=== PATIENT | female | born 1985 | race American Indian/Alaskan Native ===

== ENCOUNTER 2017-02-21 19:17 | Emergency (ER) | payer SELFPAY ==
[2017-02-21] MEDS ORDERED: Ketorolac 10 MG Tab PO ONE (19:18)
[2017-02-21 19:20] VITALS: BP 128/81
--- NOTE | 2017-02-21 19:33 | EDM.PDOC ---
ED HPI GENERAL MEDICAL PROBLEM - General Chief Complaint: Lower Extremity Injury/Pain Stated Complaint: pain to right calf Time Seen by Provider: 02/21/17 19:24 Source of Information: Reports: Patient History Limitations: Reports: No Limitations - History of Present Illness INITIAL COMMENTS - FREE TEXT/NARRATIVE: Patient presents with right calf pain for the last 3 days. States has been trying tylenol and muscle relaxants without much relief. Has not been travelling or flown anywhere as of late. No swelling in her leg. Has a constant ache, doesn't differ with weight bearing or with rest. Has tried rubbing ointment on her leg too without much help. Not aware of any electrolyte abnormalities in the past. No shortness of breath or chest pain. 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 LINE TEAMSTER: Reports: Acetaminophen, NSAIDS, Other Medication(s) Other Treatments LONG LINE TEAMSTER: muscle relaxant Right Lower Leg Pain Score (Numeric/FACES): 4 - Related Data Allergies Allergy/AdvReac Type Severity Reaction Status Date / Time No Known Allergies Allergy Verified 02/21/17 19:20 Home Meds: Home Meds Acetaminophen [Tylenol Arthritis Pain] 650 mg PO ASDIRECTED PRN 02/21/17 [ History] Ethynodiol D-Ethinyl Estradiol [Zovia 1-35E Tablet] 1 tab PO DAILY 02/21/17 [ History] Orphenadrine [Norflex] 100 mg PO BID PRN 02/21/17 [History] Social & Family History - Tobacco Use Smoking Status *Q: Never Smoker Second Hand Smoke Exposure: No - Alcohol Use Days Per Week of Alcohol Use: 0 - Recreational Drug Use Recreational Drug Use: No Review of Systems - Review of Systems Review Of Systems: See Below Constitutional: Denies: Chills, Fever, Weakness Eyes: Reports: No Symptoms Ears: Reports: No Symptoms Nose: Reports: No Symptoms Mouth/Throat: Reports: No Symptoms Respiratory: Denies: Shortness of Breath, Wheezing, Cough Cardiovascular: Denies: Chest Pain, Edema, Irregular Heart Rate, Palpitations GI/Abdominal: Reports: No Symptoms Genitourinary: Reports: No Symptoms Musculoskeletal: Reports: Leg Pain Skin: Denies: Bruising Neurological: Reports: No Symptoms Psychiatric: Reports: No Symptoms ED EXAM, GENERAL - Physical Exam Exam: See Below Exam Limited By: No Limitations General Appearance: Alert, WD/WN, No Apparent Distress Respiratory/Chest: No Respiratory Distress, Lungs Clear, Normal Breath Sounds Cardiovascular: Regular Rate, Rhythm, No Edema Extremities: Normal Inspection, Normal Range of Motion, No Pedal Edema, Normal Capillary Refill Neurological: Alert, Oriented Skin Exam: Warm, Dry Course - Vital Signs Last Recorded V/S: Last Vital Signs Temp 96.6 F 02/21/17 19:18 Pulse 106 H 02/21/17 19:18 Resp 16 02/21/17 19:18 BP 128/81 02/21/17 19:18 Pulse Ox 96 02/21/17 19:18 - Orders/Labs/Meds Labs: Laboratory Tests 02/21/17 02/21/17 02/21/17 Range/Units 19:40 19:40 19:40 WBC 6.7 (5.0-10.0) 10^3/uL RBC 4.70 (4.00-5.50) 10^6/uL Hgb 13.6 (12.0-16.0) g/dL Hct 41.0 (37.0-47.0) % MCV 87.2 (82.0-94.0) fL MCH 28.9 (27.0-32.0) pg MCHC 33.2 (33.0-38.0) g/dL RDW Coeff of Sherrie 13.2 (11.0-15.0) % Plt Count 273 (150-400) 10^3/uL Neut % (Auto) 54.9 (35-85) % Lymph % (Auto) 31.8 (10-55) % [place] % (Auto) 9.9 (0-16) % Eos % (Auto) 3.1 (0-5) % Baso % (Auto) 0.3 (0-3) % Neut # (Auto) 3.68 (1.80-7.00) 10^3/uL Lymph # (Auto) 2.13 (1.00-4.80) 10^3/uL [place] # (Auto) 0.66 (0.00-0.80) 10^3/uL Eos # (Auto) 0.21 (0.00-0.45) 10^3/uL Baso # (Auto) 0.02 10^3/uL D-Dimer, Quantitative 0.34 (0.00-0.50) Sodium 138 (136-145) mEq/L Potassium 3.9 (3.5-5.0) mEq/L Chloride 102 (98-106) mEq/L Carbon Dioxide 28 (21-32) mmol/L BUN 10 (7-18) mg/dL Creatinine 0.9 (0.6-1.0) mg/dL Est Cr Clr Drug Dosing 83.23 mL/min Estimated GFR (MDRD) > 60 (>=60) mL/min Glucose 100 H (75-99) mg/dL Calcium 8.8 (8.4-10.1) mg/dL Magnesium 1.9 (1.8-2.4) mg/dL Departure - Departure Time of Disposition: 20:04 Disposition: Home, Self-Care 01 Condition: Good Clinical Impression: Pain of left calf - Discharge Information Forms: ED Department Discharge Additional Instructions: 1. Push fluids 2. Continue with biofreeze or icy hot to calf 3. Norflex 100 mg twice a day until relieved 4. Toradol 10 mg every 6 hours as needed for discomfort and inflammation 5. Follow up for any ongoing concerns.
[2017-02-21 19:55] LABS: CHLORIDE,CL 102 mEq/L (98-106); SODIUM,NA 138 mEq/L (136-145)
[2017-02-21] MEDS ORDERED: Take Home: Ketorolac 10 MG Tab, 4 Tab Pack PO ONE (20:07)
== END 2017-02-21 20:12 | disposition home or self-care (01) ==
LOC: CC.ED 19:17
DX: M79.662 Pain in left lower leg (principal)
CPT/HCPCS: 36415; 80048; 83735; 85025; 85379; 99283; A9270

== ENCOUNTER 2017-03-30 13:56 | Emergency (ER) | payer SELFPAY ==
[2017-03-30 14:46] LABS: CHLORIDE,CL 103 mEq/L (98-106); SODIUM,NA 139 mEq/L (136-145)
[2017-03-30 15:07] VITALS: BP 119/76
--- NOTE | 2017-03-30 17:43 | EDM.PDOC ---
ED HPI GENERAL MEDICAL PROBLEM - General Chief Complaint: General Stated Complaint: NUMBNESS IN HER NECK DOWN TO HER HAND Time Seen by Provider: 03/30/17 14:45 Source of Information: Reports: Patient History Limitations: Reports: No Limitations - History of Present Illness INITIAL COMMENTS - FREE TEXT/NARRATIVE: Elmira is a 31 yo female who presents to the ER with complaints of palpitations and discomfort going into her left jaw and left arm. Admits to a history of radicular symptoms into her left arm secondary to 3 cervical herniated discs. States she called the nurses at the clinic to ask what she should do and they advised she go directly to the ER. She states the radiation into her jaw has subsided now. Has been doing physical therapy and now home stretches/exercises for her bulging discs. She denies any discomfort in the chest on exertion. States she is suppose to start going to the gym and lose weight for her neck but hasn't started yet. States she doesn't have any chest pressure presently. States she feels her normal self. Feels that after talking to the nurse it did make it worse as her anxiety set in. Admits to a history of anxiety attacks. 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: Musculoskeletal History: Reports: Back Pain, Chronic Neurological History: Reports: Headaches, Chronic Psychiatric History: Reports: Anxiety, Panic Attack Endocrine/Metabolic History: Reports: Obesity/BMI 30+ - Past Surgical History HEENT Surgical History: Reports: Oral Surgery GI Surgical History: Reports: Cholecystectomy Female Surgical History: Reports: Section Social & Family History - Family History Family Medical History: Noncontributory - Tobacco Use Smoking Status *Q: Never Smoker Second Hand Smoke Exposure: No - Caffeine Use Caffeine Use: Reports: Soda - Alcohol Use Days Per Week of Alcohol Use: 0 - Recreational Drug Use Recreational Drug Use: No ED ROS GENERAL - Review of Systems Review Of Systems: See Below Constitutional: Reports: No Symptoms. Denies: Fever, Chills HEENT: Reports: No Symptoms Respiratory: Denies: Shortness of Breath Cardiovascular: Reports: Chest Pain, Palpitations. Denies: Dyspnea on Exertion , Lightheadedness, Syncope GI/Abdominal: Reports: No Symptoms Musculoskeletal: Reports: Arm Pain Neurological: Reports: Numbness (left arm/neck area), Pre-Existing Deficit. Denies: Weakness ED EXAM, GENERAL - Physical Exam Exam: See Below Exam Limited By: No Limitations General Appearance: Alert, WD/WN, No Apparent Distress Ears: Normal External Exam, Normal Canal, Hearing Grossly Normal, Normal TMs Nose: Normal Inspection, No Blood Throat/Mouth: Normal Inspection, Normal Lips, Normal Teeth, Normal Oropharynx, Normal Voice, No Airway Compromise Head: Atraumatic, Normocephalic Neck: Normal Inspection, Supple Respiratory/Chest: No Respiratory Distress, Lungs Clear Cardiovascular: Normal Peripheral Pulses, Regular Rate, Rhythm, No Edema, No Murmur GI/Abdominal: Normal Bowel Sounds, Soft, No Organomegaly, No Distention Neurological: Alert, Oriented, Normal Cognition Psychiatric: Normal Affect, Normal Mood Skin Exam: Warm, Dry, Intact, Normal Color, No Rash Course - Vital Signs Last Recorded V/S: Last Vital Signs Temp 98.1 F 03/30/17 14:45 Pulse 97 03/30/17 14:45 Resp 16 03/30/17 14:45 BP 119/76 03/30/17 14:45 Pulse Ox 99 03/30/17 14:45 - Orders/Labs/Meds Orders: Active Orders 24 hr Category Date Time Status EKG Documentation Completion [RC] STAT Care 03/30/17 14:20 Active Chest 2V [CR] Stat Exams 03/30/17 14:27 Taken Labs: Laboratory Tests 03/30/17 03/30/17 03/30/17 Range/Units 14:25 14:25 14:25 WBC 8.1 (5.0-10.0) 10^3/uL RBC 4.74 (4.00-5.50) 10^6/uL Hgb 13.6 (12.0-16.0) g/dL Hct 41.9 (37.0-47.0) % MCV 88.4 (82.0-94.0) fL MCH 28.7 (27.0-32.0) pg MCHC 32.5 L (33.0-38.0) g/dL RDW Coeff of Sherrie 13.1 (11.0-15.0) % Plt Count 258 (150-400) 10^3/uL Neut % (Auto) 65.0 (35-85) % Lymph % (Auto) 22.3 (10-55) % [place] % (Auto) 9.3 (0-16) % Eos % (Auto) 3.0 (0-5) % Baso % (Auto) 0.4 (0-3) % Neut # (Auto) 5.27 (1.80-7.00) 10^3/uL Lymph # (Auto) 1.81 (1.00-4.80) 10^3/uL [place] # (Auto) 0.75 (0.00-0.80) 10^3/uL Eos # (Auto) 0.24 (0.00-0.45) 10^3/uL Baso # (Auto) 0.03 10^3/uL PT 10.1 (9.7-12.3) SEC INR 0.94 (0.92-1.18) Sodium 139 (136-145) mEq/L Potassium 4.1 (3.5-5.0) mEq/L Chloride 103 (98-106) mEq/L Carbon Dioxide 27 (21-32) mmol/L BUN 10 (7-18) mg/dL Creatinine 0.7 (0.6-1.0) mg/dL Est Cr Clr Drug Dosing 107.01 mL/min Estimated GFR (MDRD) > 60 (>=60) mL/min Glucose 115 H (75-99) mg/dL Calcium 9.3 (8.4-10.1) mg/dL Lactate Dehydrogenase 146 (100-190) U/L Creatine Kinase 112 (21-215) U/L Troponin I < 0.017 (0.00-0.06) ng/mL Departure - Departure Time of Disposition: 16:30 Disposition: Home, Self-Care 01 Condition: Good Clinical Impression: Cervical radicular pain, Atypical chest pain - Discharge Information Instructions: Radicular Pain, Panic Attacks, [id number], Nonspecific Chest Pain Referrals: PCP,None [Primary Care Provider] - Forms: ED Department Discharge Additional Instructions: 1) Continue with current medications as directed. 2) Recommend establishing care and getting outside records for review. 3) If any concerns or symptoms return and worsen, recommend reevaluation. 4) Continue with home exercises as well. - Problem List & Annotations (1) Atypical chest pain SNOMED Code(s): 958168511 Code(s): R07.89 - OTHER CHEST PAIN Status: Acute (2) Cervical radicular pain SNOMED Code(s): 344397069 Code(s): M54.12 - RADICULOPATHY, CERVICAL REGION Status: Acute - Problem List Review Problem List Initiated/Reviewed/Updated: Yes - My Orders Last 24 Hours: My Active Orders 03/30/17 14:20 EKG Documentation Completion [RC] STAT 03/30/17 14:27 Chest 2V [CR] Stat - Assessment/Plan Last 24 Hours: My Active Orders 03/30/17 14:20 EKG Documentation Completion [RC] STAT 03/30/17 14:27 Chest 2V [CR] Stat Plan: Exam, labs, EKG and chest x-ray were all stable. No clinical findings. Will discharge home at this time. Recommend establishing care to discuss current symptoms. Advise returning if symptoms persist.
== END 2017-03-30 15:55 | disposition home or self-care (01) ==
LOC: CC.ED 13:56
DX: M54.12 Radiculopathy, cervical region (principal); R07.89 Other chest pain; F41.9 Anxiety disorder, unspecified
CPT/HCPCS: 36415; 71046; 80048; 82550; 83615; 84484; 85025; 85610; 93005; 99285

== ENCOUNTER 2017-09-25 21:31 | Emergency (ER) | payer SELFPAY ==
[2017-09-25] MEDS ORDERED: Amoxicillin 500 MG Cap PO ONE (21:32)
[2017-09-25 21:52] VITALS: BP 113/74
[2017-09-25] MEDS ORDERED: Take Home: Amoxicillin 500 MG Cap, 2 Cap Pack PO ONE (21:53)
--- NOTE | 2017-09-25 21:58 | EDM.PDOC ---
ED HPI GENERAL MEDICAL PROBLEM - General Chief Complaint: General Stated Complaint: "I HAVE A SORE THROAT" Time Seen by Provider: 09/25/17 21:46 Source of Information: Reports: Patient History Limitations: Reports: No Limitations - History of Present Illness INITIAL COMMENTS - FREE TEXT/NARRATIVE: This patient is a 32 year old female that presents to the ER. Patient reports that for the past 2 days she has had sore throat. She reports it hurts to eat and drink. She also reports a mild headache. Patient denies n, v, d, f, voice change, vision changes, ear pain, congestion, drainage, cough, cp, soa, abd pain , urinary/bowel changes, rashes, neck pain, neck stiffness. Onset Date: 09/23/17 Duration: Day(s): (2) Quality: Reports: Ache Severity: Mild Improves with: Reports: Eating Worsens with: Reports: None Associated Symptoms: Reports: Headaches. Denies: Confusion, Chest Pain, Cough, cough w sputum, Diaphoresis, Fever/Chills, Loss of Appetite, Malaise, Nausea/ Vomiting, Rash, Seizure, Shortness of Breath, Syncope, Weakness Throat Pain Score (Numeric/FACES): 4 - Related Data Allergies Allergy/AdvReac Type Severity Reaction Status Date / Time No Known Allergies Allergy Verified 09/25/17 21:41 Home Meds: Home Meds Orphenadrine [Norflex] 100 mg PO BID PRN 02/21/17 [History] Ketorolac [Toradol] 10 mg PO Q6H 03/30/17 [History] traMADol [Ultram] 50 mg PO Q6H 03/30/17 [History] Past Medical History - Past Health History Medical/Surgical History: Denies Medical/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: Musculoskeletal History: Reports: Back Pain, Chronic Neurological History: Reports: Headaches, Chronic Psychiatric History: Reports: Anxiety, Panic Attack Endocrine/Metabolic History: Reports: Obesity/BMI 30+ - Past Surgical History HEENT Surgical History: Reports: Oral Surgery GI Surgical History: Reports: Cholecystectomy Female Surgical History: Reports: Section Social & Family History - Family History Family Medical History: Noncontributory - Caffeine Use Caffeine Use: Reports: Soda ED ROS GENERAL - Review of Systems Review Of Systems: See Below Constitutional: Reports: No Symptoms HEENT: Reports: Throat Pain. Denies: Dental Pain, Ear Discharge, Ear Pain, Rhinitis, Sinus Problem Respiratory: Reports: No Symptoms Cardiovascular: Reports: No Symptoms Endocrine: Reports: No Symptoms GI/Abdominal: Reports: No Symptoms. Denies: Diarrhea, Nausea, Vomiting : Reports: No Symptoms Musculoskeletal: Reports: No Symptoms Skin: Reports: No Symptoms Neurological: Reports: Headache. Denies: Confusion, Dizziness, Numbness, Seizure, Syncope, Tingling, Tremors, Trouble Speaking, Difficulty Walking, Weakness, Change in Speech, Gait Disturbance Psychiatric: Reports: No Symptoms Hematologic/Lymphatic: Reports: No Symptoms Immunologic: Reports: No Symptoms ED EXAM, GENERAL - Physical Exam Exam: See Below Exam Limited By: No Limitations General Appearance: Alert, WD/WN, No Apparent Distress Eye Exam: Bilateral Eye: Normal Inspection, PERRL Ears: Normal External Exam, Normal Canal, Hearing Grossly Normal, Normal TMs Ear Exam: Bilateral Ear: Auricle Normal, Canal Normal, TM normal Nose: Normal Inspection, Normal Mucosa, No Blood Throat/Mouth: Normal Inspection, Normal Lips, Normal Teeth, Normal Gums, Normal Voice, No Airway Compromise, Other (pharyngeal erythema. ) Head: Atraumatic, Normocephalic Neck: Normal Inspection, Supple, Non-Tender, Full Range of Motion Respiratory/Chest: No Respiratory Distress, Lungs Clear, Normal Breath Sounds, No Accessory Muscle Use Cardiovascular: Normal Peripheral Pulses, Regular Rate, Rhythm, No Edema, No Gallop, No JVD, No Murmur, No Rub Peripheral Pulses: 2+: Posterior Tibial (L), Posterior Tibial (R) Back Exam: Normal Inspection, Full Range of Motion Extremities: Normal Inspection, Normal Range of Motion, No Pedal Edema, Normal Capillary Refill Neurological: Alert, Oriented Psychiatric: Normal Affect, Normal Mood Skin Exam: Warm, Dry, Intact, Normal Color, No Rash Lymphatic: No Adenopathy Course - Vital Signs Last Recorded V/S: Last Vital Signs Temp 97.8 F 09/25/17 21:51 Pulse 76 09/25/17 21:51 Resp 18 09/25/17 21:51 BP 113/74 09/25/17 21:51 Pulse Ox 97 09/25/17 21:51 - Orders/Labs/Meds Meds: Medications Discontinued Medications Generic Name Dose Route Start Last Admin Trade Name Freq PRN Reason Stop Dose Admin Amoxicillin 2 packet 09/25/17 21:53 Take Home: Amoxicillin 500 Mg, 2 Cap Pack PO 09/25/17 21:54 ONETIME ONE Sodium Chloride Confirm 09/25/17 22:41 Normal Saline Administered 09/25/17 22:42 Dose 2,000 mls @ as directed .ROUTE .STK-MED ONE Departure - Departure Time of Disposition: 21:56 Disposition: Home, Self-Care 01 Condition: Good Clinical Impression: Pharyngitis Qualifiers: Pharyngitis/tonsillitis etiology: other specified organisms Qualified Code(s): J02.8 - Acute pharyngitis due to other specified organisms - Discharge Information Instructions: Pharyngitis, [id number] Referrals: Provider,Unknown [Primary Care Provider] - Forms: ED Department Discharge Additional Instructions: Followup with your primary care provider Return to the ER for worsening of condition or any emergent concerns Increase fluids Amoxicillin 500mg 2 pills once a day for 10 days #4 take home, #16 No refill Tylenol and Motrin for pain or fever - Assessment/Plan Plan: PLEASE SEE RN NOTE FOR PFSH.
[2017-09-25] MEDS ORDERED: Sodium Chloride 0.9% 2,000 ML ONE (22:41)
== END 2017-09-25 22:00 | disposition home or self-care (01) ==
LOC: CC.ED 21:31
DX: J02.8 Acute pharyngitis due to other specified organisms (principal); Z79.899 Other long term (current) drug therapy
CPT/HCPCS: 99282; A9270

== ENCOUNTER 2017-09-30 12:50 | Emergency (ER) | payer SELFPAY ==
[2017-09-30 13:32] VITALS: BP 108/81
--- NOTE | 2017-09-30 13:46 | EDM.PDOC ---
ED HPI GENERAL MEDICAL PROBLEM - General Chief Complaint: General Stated Complaint: SORE TROAT Time Seen by Provider: 09/30/17 13:35 Source of Information: Reports: Patient History Limitations: Reports: No Limitations - History of Present Illness INITIAL COMMENTS - FREE TEXT/NARRATIVE: States was started on Amoxicillin on Wednesday night for strep throat and by Wednesday afternoon was already feeling better. On Wednesday she started to notice more chest burning and an increase in heartburn. Has been taking her omeprazole. Is also on herballife shakes that she does every morning so she drinks that with her antibiotics and doesn't eat anything else until dinner time. Does have history of heartburn. The omepraozle does help when she takes it. She denies any nausea or vomiting with it. States that this morning the burning went up into her throat and it has made it difficult to swallow as her throat felt like it was on fire. 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: Musculoskeletal History: Reports: Back Pain, Chronic Neurological History: Reports: Headaches, Chronic Psychiatric History: Reports: Anxiety, Panic Attack Endocrine/Metabolic History: Reports: Obesity/BMI 30+ - Past Surgical History HEENT Surgical History: Reports: Oral Surgery GI Surgical History: Reports: Cholecystectomy Female Surgical History: Reports: Section Social & Family History - Family History Family Medical History: Noncontributory - Tobacco Use Smoking Status *Q: Never Smoker Second Hand Smoke Exposure: No - Caffeine Use Caffeine Use: Reports: Soda ED ROS GENERAL - Review of Systems Review Of Systems: See Below Constitutional: Denies: Fever, Chills HEENT: Reports: Throat Pain. Denies: Throat Swelling Respiratory: Denies: Shortness of Breath, Cough Cardiovascular: Reports: No Symptoms GI/Abdominal: Reports: No Symptoms. Denies: Constipation, Diarrhea : Reports: No Symptoms Musculoskeletal: Reports: No Symptoms Skin: Reports: No Symptoms ED EXAM, GENERAL - Physical Exam Exam: See Below General Appearance: Alert, WD/WN, No Apparent Distress Ears: Normal External Exam, Normal Canal, Normal TMs Nose: Normal Inspection Throat/Mouth: Normal Inspection, Normal Oropharynx, Normal Voice, No Airway Compromise Head: Atraumatic, Normocephalic Neck: Normal Inspection, Supple, Non-Tender, Full Range of Motion Respiratory/Chest: No Respiratory Distress, Lungs Clear, Normal Breath Sounds Cardiovascular: Regular Rate, Rhythm GI/Abdominal: Normal Bowel Sounds, Soft, Non-Tender Extremities: Normal Inspection, Normal Range of Motion Course - Vital Signs Last Recorded V/S: Last Vital Signs Temp 97.2 F 09/30/17 13:23 Pulse 88 09/30/17 13:23 Resp 18 09/30/17 13:23 BP 108/81 09/30/17 13:23 Pulse Ox 98 09/30/17 13:23 - Orders/Labs/Meds Labs: Laboratory Tests 09/30/17 09/30/17 Range/Units 13:16 13:16 WBC 6.6 (5.0-10.0) 10^3/uL RBC 4.79 (4.00-5.50) 10^6/uL Hgb 13.6 (12.0-16.0) g/dL Hct 41.7 (37.0-47.0) % MCV 87.1 (82.0-94.0) fL MCH 28.4 (27.0-32.0) pg MCHC 32.6 L (33.0-38.0) g/dL RDW Coeff of Sherrie 13.2 (11.0-15.0) % Plt Count 271 (150-400) 10^3/uL Neut % (Auto) 60.5 (35-85) % Lymph % (Auto) 27.3 (10-55) % [place] % (Auto) 9.2 (0-16) % Eos % (Auto) 2.7 (0-5) % Baso % (Auto) 0.3 (0-3) % Neut # (Auto) 3.96 (1.80-7.00) 10^3/uL Lymph # (Auto) 1.79 (1.00-4.80) 10^3/uL [place] # (Auto) 0.60 (0.00-0.80) 10^3/uL Eos # (Auto) 0.18 (0.00-0.45) 10^3/uL Baso # (Auto) 0.02 10^3/uL C-Reactive Protein < 0.2 L (0.2-0.8) mg/dL Departure - Departure Time of Disposition: 13:52 Disposition: Home, Self-Care 01 Condition: Good Clinical Impression: GERD (gastroesophageal reflux disease) Qualifiers: Esophagitis presence: without esophagitis Qualified Code(s): K21.9 - Gastro- esophageal reflux disease without esophagitis - Discharge Information Instructions: Heartburn, [id number], Food Choices for Gastroesophageal Reflux Disease, Adult Referrals: Provider,Unknown [Ordering Only Provider] - Forms: ED Department Discharge Additional Instructions: Stop the herballife while on the antibiotics. 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 Finish out the antibiotics. You can try splitting the dose and take them in the morning and evening Recheck in the clinic if not improving. - Problem List & Annotations (1) GERD (gastroesophageal reflux disease) SNOMED Code(s): 978279907 Code(s): K21.9 - GASTRO-ESOPHAGEAL REFLUX DISEASE WITHOUT ESOPHAGITIS Status: Acute Priority: High Qualifiers: Esophagitis presence: without esophagitis Qualified Code(s): K21.9 - Gastro -esophageal reflux disease without esophagitis - Problem List Review Problem List Initiated/Reviewed/Updated: Yes
== END 2017-09-30 14:05 | disposition home or self-care (01) ==
LOC: CC.ED 12:50
DX: K21.9 Gastro-esophageal reflux disease without esophagitis (principal)
CPT/HCPCS: 36415; 85025; 86140; 87430; 99282

== ENCOUNTER 2018-02-09 09:04 | Emergency (ER) | payer MEDICAID ==
[2018-02-09 09:25] VITALS: BP 119/81
[2018-02-09 10:13] LABS: CHLORIDE,CL 105 mEq/L (98-106); SODIUM,NA 142 mEq/L (136-145)
[2018-02-09] MEDS ORDERED: Ondansetron 4 MG Tab.DIS PO ONE (10:21)
--- NOTE | 2018-02-09 10:49 | EDM.PDOC ---
ED HPI GENERAL MEDICAL PROBLEM - General Chief Complaint: Headache Stated Complaint: headache Time Seen by Provider: 02/09/18 09:30 Source of Information: Reports: Patient History Limitations: Reports: No Limitations - History of Present Illness INITIAL COMMENTS - FREE TEXT/NARRATIVE: Elmira is a 32 yo female who presents to the ER with complaints of a headache and feeling nauseated. Was seen in the clinic on Wednesday for headache and had a DT scan of the brain, which was negative. She admits to history of headaches but usually doesn't feel nauseated. Has a history of bulging cervical discs and had previously seen physical therapy in the past and is wondering if this would help again. She had tried taking Tramadol and Toradol at home yesterday which did give her some mild relief. Today the headache has moved to the back of her head on the right side. Again, she is concerned as she usually never gets nauseated. She denies otherwise feeling ill. Denies but can't confirm this. She hasn't had any upper respiratory symptoms. Denies any abdominal discomfort, diarrhea, constipation, urinary symptoms. 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: Musculoskeletal History: Reports: Back Pain, Chronic Other Musculoskeletal History: bulging discs Neurological History: Reports: Headaches, Chronic Psychiatric History: Reports: Anxiety, Panic Attack Endocrine/Metabolic History: Reports: Obesity/BMI 30+ - Past Surgical History HEENT Surgical History: Reports: Oral Surgery GI Surgical History: Reports: Cholecystectomy Female Surgical History: Reports: Section Social & Family History - Family History Family Medical History: Noncontributory - Tobacco Use Smoking Status *Q: Never Smoker - Caffeine Use Caffeine Use: Reports: Coffee, Soda - Recreational Drug Use Recreational Drug Use: No ED ROS GENERAL - Review of Systems Review Of Systems: ROS reveals no pertinent complaints other than HPI. - Physical Exam Exam: See Below Exam Limited By: No Limitations General Appearance: Alert, WD/WN, No Apparent Distress Eye Exam: Bilateral Eye: EOMI, Normal Inspection, PERRL Ears: Normal External Exam, Normal Canal, Hearing Grossly Normal, Normal TMs Nose: Normal Inspection, No Blood Throat/Mouth: Normal Inspection, Normal Lips, Normal Teeth, Normal Gums, Normal Oropharynx, Normal Voice, No Airway Compromise Head Exam: Atraumatic, Normocephalic Neck: Normal Inspection, Supple, Tender Lateral. No: Limited Range of Motion, Tender Midline Respiratory/Chest: No Respiratory Distress, Lungs Clear, No Accessory Muscle Use Cardiovascular: Normal Peripheral Pulses, Regular Rate, Rhythm, No Murmur Neuro Exam (Abbreviated): Alert, Oriented, CN II-XII Intact, Normal Cognition, No Motor/Sensory Deficits Psychiatric: Normal Affect, Normal Mood Skin Exam: Warm, Dry, Intact, Normal Color, No Rash Course - Vital Signs Last Recorded V/S: Last Vital Signs Temp 96.9 F 02/09/18 09:20 Pulse 94 02/09/18 09:20 Resp 16 02/09/18 09:20 BP 119/81 02/09/18 09:20 Pulse Ox 96 02/09/18 09:20 - Orders/Labs/Meds Labs: Laboratory Tests 02/09/18 02/09/18 02/09/18 Range/Units 09:47 09:48 09:57 WBC 6.1 (5.0-10.0) 10^3/uL RBC 4.83 (4.00-5.50) 10^6/uL Hgb 13.9 (12.0-16.0) g/dL Hct 42.0 (37.0-47.0) % MCV 87.0 (82.0-94.0) fL MCH 28.8 (27.0-32.0) pg MCHC 33.1 (33.0-38.0) g/dL RDW Coeff of Sherrie 13.0 (11.0-15.0) % Plt Count 255 (150-400) 10^3/uL Neut % (Auto) 66.1 (35-85) % Lymph % (Auto) 22.2 (10-55) % [place] % (Auto) 7.9 (0-16) % Eos % (Auto) 3.3 (0-5) % Baso % (Auto) 0.5 (0-3) % Neut # (Auto) 4.02 (1.80-7.00) 10^3/uL Lymph # (Auto) 1.35 (1.00-4.80) 10^3/uL [place] # (Auto) 0.48 (0.00-0.80) 10^3/uL Eos # (Auto) 0.20 (0.00-0.45) 10^3/uL Baso # (Auto) 0.03 10^3/uL Sodium (136-145) mEq/L Potassium (3.5-5.0) mEq/L Chloride (98-106) mEq/L Carbon Dioxide (21-32) mmol/L BUN (7-18) mg/dL Creatinine (0.6-1.0) mg/dL Est Cr Clr Drug Dosing mL/min Estimated GFR (MDRD) (>=60) mL/min Glucose (75-99) mg/dL Calcium (8.4-10.1) mg/dL Total Bilirubin (0.0-1.0) mg/dL AST (15-37) U/L ALT (12-78) U/L Alkaline Phosphatase (46-116) U/L C-Reactive Protein (0.2-0.8) mg/dL Total Protein (6.4-8.2) g/dL Albumin (3.4-5.0) g/dL Urine Color Yellow (YELLOW) Urine Appearance Clear (CLEAR) Urine pH 6.5 (4.5-8.0) Ur Specific [place] 1.010 (1.003-1.020) Urine Protein Negative (NEGATIVE) mg/dL Urine Glucose (UA) Negative (NEGATIVE) mg/dL Urine Ketones Negative (NEGATIVE) mg/dL Urine Occult Blood Negative (NEGATIVE) Urine Nitrite Negative (NEGATIVE) Urine Bilirubin Negative (NEGATIVE) Urine Urobilinogen 0.2 (0.2-1.0) EU/dL Ur Leukocyte Esterase Negative (NEGATIVE) Urine RBC Not seen (0-5) /HPF Urine WBC Not seen (0-5) /HPF Urine HCG, Qual Negative 02/09/18 Range/Units 09:57 WBC (5.0-10.0) 10^3/uL RBC (4.00-5.50) 10^6/uL Hgb (12.0-16.0) g/dL Hct (37.0-47.0) % MCV (82.0-94.0) fL MCH (27.0-32.0) pg MCHC (33.0-38.0) g/dL RDW Coeff of Sherrie (11.0-15.0) % Plt Count (150-400) 10^3/uL Neut % (Auto) (35-85) % Lymph % (Auto) (10-55) % [place] % (Auto) (0-16) % Eos % (Auto) (0-5) % Baso % (Auto) (0-3) % Neut # (Auto) (1.80-7.00) 10^3/uL Lymph # (Auto) (1.00-4.80) 10^3/uL [place] # (Auto) (0.00-0.80) 10^3/uL Eos # (Auto) (0.00-0.45) 10^3/uL Baso # (Auto) 10^3/uL Sodium 142 (136-145) mEq/L Potassium 4.7 (3.5-5.0) mEq/L Chloride 105 (98-106) mEq/L Carbon Dioxide 28 (21-32) mmol/L BUN 9 (7-18) mg/dL Creatinine 0.7 (0.6-1.0) mg/dL Est Cr Clr Drug Dosing 106.01 mL/min Estimated GFR (MDRD) > 60 (>=60) mL/min Glucose 92 (75-99) mg/dL Calcium 8.8 (8.4-10.1) mg/dL Total Bilirubin 0.4 (0.0-1.0) mg/dL AST 22 (15-37) U/L ALT 31 (12-78) U/L Alkaline Phosphatase 82 (46-116) U/L C-Reactive Protein 0.2 (0.2-0.8) mg/dL Total Protein 7.3 (6.4-8.2) g/dL Albumin 3.8 (3.4-5.0) g/dL Urine Color (YELLOW) Urine Appearance (CLEAR) Urine pH (4.5-8.0) Ur Specific [place] (1.003-1.020) Urine Protein (NEGATIVE) mg/dL Urine Glucose (UA) (NEGATIVE) mg/dL Urine Ketones (NEGATIVE) mg/dL Urine Occult Blood (NEGATIVE) Urine Nitrite (NEGATIVE) Urine Bilirubin (NEGATIVE) Urine Urobilinogen (0.2-1.0) EU/dL Ur Leukocyte Esterase (NEGATIVE) Urine RBC (0-5) /HPF Urine WBC (0-5) /HPF Urine HCG, Qual Meds: Medications Discontinued Medications Generic Name Dose Route Start Last Admin Trade Name M[place]hq PRN Reason Stop Dose Admin Ondansetron HCl 4 mg 02/09/18 10:21 02/09/18 10:24 Zofran Odt PO 02/09/18 10:22 4 mg ONETIME ONE Administration Departure - Departure Time of Disposition: 10:49 Disposition: Home, Self-Care 01 Clinical Impression: Tension headache, Nausea - Discharge Information Instructions: Nausea, Adult, Tension Headache, Adult, [id number] Referrals: PCP,None [Primary Care Provider] - Additional Instructions: 1) Zofran ODT - 1 tablet every 4 hours as needed for nausea, called to [facility]. 2) Robaxin 500mg - 1 tablet every 8 hours as needed for neck discomfort/spasms, called to [facility]. 3) Increase water intake if able 4) Recommend following up with physical therapy 5) If symptoms persist or worsen, recommend reevaluation. - Problem List & Annotations (1) Nausea SNOMED Code(s): 929451941 Code(s): R11.0 - NAUSEA Status: Acute Current Visit: Yes (2) Tension headache SNOMED Code(s): 205596194 Code(s): G44.209 - TENSION-TYPE HEADACHE, UNSPECIFIED, NOT INTRACTABLE Status: Acute Current Visit: Yes - Assessment/Plan Plan: Elmira felt the nausea had subsided after getting Zofran. Labs were all unremarkable today. Will send home with muscle relaxer and Zofran ODT tablets. Recommend following up if symptoms persist or any worsening of symptoms. Recheck with primary in 2 weeks.
== END 2018-02-09 11:00 | disposition home or self-care (01) ==
LOC: CC.ED 09:04
DX: G44.209 Tension-type headache, unspecified, not intractable (principal); R11.0 Nausea; E66.9 Obesity, unspecified
CPT/HCPCS: 36415; 80053; 81001; 81025; 85025; 86140; 99283; A9270

== ENCOUNTER 2018-05-08 20:41 | Emergency (ER) | payer MEDICAID ==
[2018-05-08 20:48] VITALS: BP 132/74
--- NOTE | 2018-05-08 21:20 | EDM.PDOC ---
ED HPI GENERAL MEDICAL PROBLEM - General Chief Complaint: Abdominal Pain Stated Complaint: abd pain radiating to back Time Seen by Provider: 05/08/18 21:09 Source of Information: Reports: Patient History Limitations: Reports: No Limitations - History of Present Illness INITIAL COMMENTS - FREE TEXT/NARRATIVE: Patient presents to the ER with complaints of midepigastric pain. She relates was experiencing right calf pain, which is intermittent and chronic for her but now is concerned that the pain in her upper abdomen and chest is related to this. Has been across her upper abdomen, along the bra line that radiates through to her back and up through her chest. She is unsure if it is related to soup that she had for supper as it all started after that. She thought it was possibly heartburn so took Zantac but did not get relief. As the pain persists, she became concerned it could be her heart as well. She denies any vomiting, has felt nauseated. No swelling in her leg. No diarrhea. Admits that her BM was "hard earlier but didn't relieve the pain". Onset: Today, Gradual Duration: Hour(s): Location: Reports: Chest, Abdomen, Lower Extremity, Right Quality: Reports: Ache, Sharp Severity: Moderate Improves with: Reports: None Associated Symptoms: Reports: Chest Pain, Nausea/Vomiting. Denies: Cough, Fever /Chills, Loss of Appetite, Shortness of Breath, Weakness Epigastric Pain Score (Numeric/FACES): 3 - Related Data Allergies Allergy/AdvReac Type Severity Reaction Status Date / Time No Known Allergies Allergy Verified 05/08/18 20:42 Home Meds: Home Meds Ketorolac [Toradol] 10 mg PO Q6H PRN 03/30/17 [History] traMADol [Ultram] 25 mg PO Q6H PRN 03/30/17 [History] Ondansetron [Ondansetron ODT] 8 mg SL Q8H PRN 05/08/18 [History] Past Medical History - Past Health History Medical/Surgical History: Denies Medical/Surgical History HEENT History: Reports: None 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 History: Reports: GERD 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: Musculoskeletal History: Reports: Back Pain, Chronic Other Musculoskeletal History: bulging discs Neurological History: Reports: Headaches, Chronic Psychiatric History: Reports: Anxiety, Panic Attack Endocrine/Metabolic History: Reports: Obesity/BMI 30+ Hematologic History: Reports: B12 Deficiency - Past Surgical History GI Surgical History: Reports: Cholecystectomy Female Surgical History: Reports: Section Endocrine Surgical History: Reports: None Neurological Surgical History: Reports: None Musculoskeletal Surgical History: Reports: None Social & Family History - Family History Family Medical History: Noncontributory - Tobacco Use Smoking Status *Q: Never Smoker Second Hand Smoke Exposure: No - Caffeine Use Caffeine Use: Reports: Coffee - Recreational Drug Use Recreational Drug Use: No ED ROS GENERAL - Review of Systems Review Of Systems: See Below Constitutional: Denies: Fever, Chills, Malaise, Weakness, Decreased Appetite HEENT: Reports: No Symptoms Respiratory: Denies: Shortness of Breath, Cough Cardiovascular: Reports: Chest Pain. Denies: Edema, Lightheadedness Endocrine: Denies: Fatigue GI/Abdominal: Reports: Abdominal Pain, Constipation, Nausea. Denies: Vomiting : Reports: Flank Pain. Denies: Dysuria Musculoskeletal: Reports: Leg Pain Skin: Reports: No Symptoms Neurological: Reports: No Symptoms ED EXAM, GI/ABD - Physical Exam Exam: See Below Exam Limited By: No Limitations General Appearance: Alert, WD/WN, No Apparent Distress Eyes: Bilateral: Normal Appearance Ears: Normal External Exam, Normal TMs Nose: Normal Inspection, Normal Mucosa, No Blood Throat/Mouth: Normal Inspection, Normal Oropharynx Head: Normocephalic Neck: Normal Inspection, Supple, Non-Tender Respiratory/Chest: No Respiratory Distress, Lungs Clear, Normal Breath Sounds Cardiovascular: Regular Rate, Rhythm GI/Abdominal Exam: Normal Bowel Sounds, Soft, Non-Tender Extremities: Normal Inspection, Normal Capillary Refill Neurological: Alert, Oriented Psychiatric: Tearful Course - Vital Signs Last Recorded V/S: Last Vital Signs Temp 96.9 F 05/08/18 20:44 Pulse 88 05/08/18 20:44 Resp 16 05/08/18 20:44 BP 132/74 05/08/18 20:44 Pulse Ox 100 05/08/18 20:44 - Orders/Labs/Meds Orders: Active Orders 24 hr Category Date Time Status EKG Documentation Completion [RC] STAT Care 05/08/18 21:23 Active EKG 12 Lead [EK] Stat Ther 05/08/18 21:13 Stop Req Labs: Laboratory Tests 02/17/19 02/17/19 02/17/19 Range/Units 21:12 21:20 21:20 WBC (5.0-10.0) 10^3/uL RBC (4.00-5.50) 10^6/uL Hgb (12.0-16.0) g/dL Hct (37.0-47.0) % MCV (82.0-94.0) fL MCH (27.0-32.0) pg MCHC (33.0-38.0) g/dL RDW Coeff of Sherrie (11.0-15.0) % Plt Count (150-400) 10^3/uL Neut % (Auto) (35-85) % Lymph % (Auto) (10-55) % [place] % (Auto) (0-16) % Eos % (Auto) (0-5) % Baso % (Auto) (0-3) % Neut # (Auto) (1.80-7.00) 10^3/uL Lymph # (Auto) (1.00-4.80) 10^3/uL [place] # (Auto) (0.00-0.80) 10^3/uL Eos # (Auto) (0.00-0.45) 10^3/uL Baso # (Auto) 10^3/uL D-Dimer, Quantitative 0.28 (0.00-0.50) Sodium 141 (136-145) mEq/L Potassium 4.2 (3.5-5.0) mEq/L Chloride 103 (98-106) mEq/L Carbon Dioxide 27 (21-32) mmol/L BUN 14 D (7-18) mg/dL Creatinine 0.8 (0.6-1.0) mg/dL Est Cr Clr Drug Dosing 91.88 mL/min Estimated GFR (MDRD) > 60 (>=60) mL/min Glucose 94 (75-99) mg/dL Calcium 8.8 (8.4-10.1) mg/dL Total Bilirubin 0.4 (0.0-1.0) mg/dL AST 21 (15-37) U/L ALT 25 (12-78) U/L Alkaline Phosphatase 90 (46-116) U/L Troponin I < 0.017 (0.00-0.06) ng/mL C-Reactive Protein < 0.2 L (0.2-0.8) mg/dL Total Protein 7.3 (6.4-8.2) g/dL Albumin 3.9 (3.4-5.0) g/dL Urine Color Straw (YELLOW) Urine Appearance Clear (CLEAR) Urine pH 7.0 (4.5-8.0) Ur Specific [place] 1.015 (1.003-1.020) Urine Protein Negative (NEGATIVE) mg/dL Urine Glucose (UA) Negative (NEGATIVE) mg/dL Urine Ketones Negative (NEGATIVE) mg/dL Urine Occult Blood Small H (NEGATIVE) Urine Nitrite Negative (NEGATIVE) Urine Bilirubin Negative (NEGATIVE) Urine Urobilinogen 0.2 (0.2-1.0) EU/dL Ur Leukocyte Esterase Negative (NEGATIVE) Urine RBC 0-5 (0-5) /HPF Urine WBC 0-5 (0-5) /HPF Ur Epithelial Cells Few H (NOT SEEN) /HPF 05/08/18 Range/Units 21:20 WBC 7.3 (5.0-10.0) 10^3/uL RBC 4.64 (4.00-5.50) 10^6/uL Hgb 13.3 (12.0-16.0) g/dL Hct 40.0 (37.0-47.0) % MCV 86.2 (82.0-94.0) fL MCH 28.7 (27.0-32.0) pg MCHC 33.3 (33.0-38.0) g/dL RDW Coeff of Sherrie 13.2 (11.0-15.0) % Plt Count 250 (150-400) 10^3/uL Neut % (Auto) 59.4 (35-85) % Lymph % (Auto) 29.2 (10-55) % [place] % (Auto) 9.1 (0-16) % Eos % (Auto) 2.2 (0-5) % Baso % (Auto) 0.1 (0-3) % Neut # (Auto) 4.36 (1.80-7.00) 10^3/uL Lymph # (Auto) 2.14 (1.00-4.80) 10^3/uL [place] # (Auto) 0.67 (0.00-0.80) 10^3/uL Eos # (Auto) 0.16 (0.00-0.45) 10^3/uL Baso # (Auto) 0.01 10^3/uL D-Dimer, Quantitative (0.00-0.50) Sodium (136-145) mEq/L Potassium (3.5-5.0) mEq/L Chloride (98-106) mEq/L Carbon Dioxide (21-32) mmol/L BUN (7-18) mg/dL Creatinine (0.6-1.0) mg/dL Est Cr Clr Drug Dosing mL/min Estimated GFR (MDRD) (>=60) mL/min Glucose (75-99) mg/dL Calcium (8.4-10.1) mg/dL Total Bilirubin (0.0-1.0) mg/dL AST (15-37) U/L ALT (12-78) U/L Alkaline Phosphatase (46-116) U/L Troponin I (0.00-0.06) ng/mL C-Reactive Protein (0.2-0.8) mg/dL Total Protein (6.4-8.2) g/dL Albumin (3.4-5.0) g/dL Urine Color (YELLOW) Urine Appearance (CLEAR) Urine pH (4.5-8.0) Ur Specific [place] (1.003-1.020) Urine Protein (NEGATIVE) mg/dL Urine Glucose (UA) (NEGATIVE) mg/dL Urine Ketones (NEGATIVE) mg/dL Urine Occult Blood (NEGATIVE) Urine Nitrite (NEGATIVE) Urine Bilirubin (NEGATIVE) Urine Urobilinogen (0.2-1.0) EU/dL Ur Leukocyte Esterase (NEGATIVE) Urine RBC (0-5) /HPF Urine WBC (0-5) /HPF Ur Epithelial Cells (NOT SEEN) /HPF - Re-Assessments/Exams Free Text/Narrative Re-Assessment/Exam: 05/08/18 21:47 Labs, EKG all normal. patient reassured of findings. Departure - Departure Time of Disposition: 21:47 Disposition: Home, Self-Care 01 Condition: Good Clinical Impression: GERD (gastroesophageal reflux disease) Qualifiers: Esophagitis presence: without esophagitis Qualified Code(s): K21.9 - Gastro- esophageal reflux disease without esophagitis - Discharge Information Forms: ED Department Discharge Additional Instructions: 1. Push fluids 2. [place] diet 3. Continue with Zantac 4. Follow up with primary care provider if persisting concerns. - My Orders Last 24 Hours: My Active Orders 05/08/18 21:13 EKG 12 Lead [EK] Stat 05/08/18 21:23 EKG Documentation Completion [RC] STAT - Assessment/Plan Last 24 Hours: My Active Orders 05/08/18 21:13 EKG 12 Lead [EK] Stat 05/08/18 21:23 EKG Documentation Completion [RC] STAT
[2018-05-08 21:43] LABS: CHLORIDE,CL 103 mEq/L (98-106); SODIUM,NA 141 mEq/L (136-145)
== END 2018-05-08 21:51 | disposition home or self-care (01) ==
LOC: CC.ED 20:41
DX: K21.9 Gastro-esophageal reflux disease without esophagitis (principal); Z79.899 Other long term (current) drug therapy
CPT/HCPCS: 36415; 80053; 81001; 84484; 85025; 85379; 86140; 93005; 99284

== ENCOUNTER 2018-07-14 21:31 | Emergency (ER) | payer MEDICAID ==
[2018-07-14] MEDS ORDERED: Orphenadrine 100 MG Tab.ER PO ONE (21:32)
[2018-07-14 21:36] VITALS: BP 129/68
[2018-07-14 21:59] LABS: CHLORIDE,CL 104 mEq/L (98-106); SODIUM,NA 140 mEq/L (136-145)
[2018-07-14] MEDS ORDERED: Ketorolac 60 MG/2 ML SDV IM ONE (22:19)
--- NOTE | 2018-07-14 22:33 | EDM.PDOC ---
ED HPI GENERAL MEDICAL PROBLEM - General Chief Complaint: Back Pain or Injury Stated Complaint: R low back pain Time Seen by Provider: 07/14/18 22:12 Source of Information: Reports: Patient History Limitations: Reports: No Limitations - History of Present Illness INITIAL COMMENTS - FREE TEXT/NARRATIVE: Patient presents to ER with complaints of right flank pain/back pain. Had mild nausea with this. No vomiting. No fevers. Had a good BM earlier today, no blood noted. Denies urinary complaints. Does note that the pain hurts more when she lies down on her back. She has had a history of back issues but has never gotten nauseated with back pain unless it was very severe. Last LMP finished 2 days ago. No injuries. has not been lifting as of late. has chronic history of back and neck pain, feels somewhat different this time. Onset: Today, Gradual Duration: Hour(s): Location: Reports: Back Quality: Reports: Sharp Severity: Mild Associated Symptoms: Reports: Nausea/Vomiting. 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 History: Reports: GERD 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: Musculoskeletal History: Reports: Back Pain, Chronic Other Musculoskeletal History: bulging discs Neurological History: Reports: Headaches, Chronic Psychiatric History: Reports: Anxiety, Panic Attack Endocrine/Metabolic History: Reports: Obesity/BMI 30+ Hematologic History: Reports: B12 Deficiency - Past Surgical History GI Surgical History: Reports: Cholecystectomy Female Surgical History: Reports: Section Endocrine Surgical History: Reports: None Neurological Surgical History: Reports: None Musculoskeletal Surgical History: Reports: None Social & Family History - Family History Family Medical History: Noncontributory - Tobacco Use Smoking Status *Q: Never Smoker - Caffeine Use Caffeine Use: Reports: Coffee - Recreational Drug Use Recreational Drug Use: No ED ROS GENERAL - Review of Systems Review Of Systems: See Below Constitutional: Denies: Fever, Chills, Malaise, Weakness, Decreased Appetite HEENT: Reports: No Symptoms Respiratory: Denies: Shortness of Breath, Cough Cardiovascular: Denies: Chest Pain, Edema, Lightheadedness Endocrine: Denies: Fatigue GI/Abdominal: Reports: Nausea. Denies: Abdominal Pain, Constipation, Diarrhea, Vomiting : Denies: Frequency, Hematuria, Irregular Menses Musculoskeletal: Reports: Back Pain Skin: Reports: No Symptoms Neurological: Reports: No Symptoms Psychiatric: Reports: No Symptoms ED EXAM, GI/ABD - Physical Exam Exam: See Below Exam Limited By: No Limitations General Appearance: Alert, WD/WN, No Apparent Distress Ears: Normal External Exam, Normal TMs Nose: Normal Inspection, Normal Mucosa, No Blood Throat/Mouth: Normal Inspection, Normal Oropharynx Head: Normocephalic Neck: Normal Inspection, Supple, Non-Tender Respiratory/Chest: No Respiratory Distress, Lungs Clear, Normal Breath Sounds Cardiovascular: Regular Rate, Rhythm GI/Abdominal Exam: Normal Bowel Sounds, Soft, Non-Tender Extremities: Normal Inspection, Normal Capillary Refill Neurological: Alert, Oriented Skin Exam: Warm, Dry Course - Vital Signs Last Recorded V/S: Last Vital Signs Temp 97.5 F 07/14/18 21:32 Pulse 77 07/14/18 21:32 Resp 16 07/14/18 21:32 BP 129/68 07/14/18 21:32 Pulse Ox 100 07/14/18 21:32 - Orders/Labs/Meds Labs: Laboratory Tests 07/14/18 07/14/18 07/14/18 Range/Units 21:44 21:50 21:50 WBC 7.4 (5.0-10.0) 10^3/uL RBC 4.61 (4.00-5.50) 10^6/uL Hgb 13.4 (12.0-16.0) g/dL Hct 40.4 (37.0-47.0) % MCV 87.6 (82.0-94.0) fL MCH 29.1 (27.0-32.0) pg MCHC 33.2 (33.0-38.0) g/dL RDW Coeff of Sherrie 13.3 (11.0-15.0) % Plt Count 253 (150-400) 10^3/uL Neut % (Auto) 56.1 (35-85) % Lymph % (Auto) 30.6 (10-55) % Nicholas % (Auto) 9.9 (0-16) % Eos % (Auto) 3.0 (0-5) % Baso % (Auto) 0.4 (0-3) % Neut # (Auto) 4.17 (1.80-7.00) 10^3/uL Lymph # (Auto) 2.28 (1.00-4.80) 10^3/uL Nicholas # (Auto) 0.74 (0.00-0.80) 10^3/uL Eos # (Auto) 0.22 (0.00-0.45) 10^3/uL Baso # (Auto) 0.03 10^3/uL Sodium 140 (136-145) mEq/L Potassium 4.1 (3.5-5.0) mEq/L Chloride 104 (98-106) mEq/L Carbon Dioxide 29 (21-32) mmol/L BUN 11 (7-18) mg/dL Creatinine 0.9 (0.6-1.0) mg/dL Est Cr Clr Drug Dosing 81.67 mL/min Estimated GFR (MDRD) > 60 (>=60) mL/min Glucose 102 H (75-99) mg/dL Calcium 9.2 (8.4-10.1) mg/dL C-Reactive Protein < 0.2 L (0.2-0.8) mg/dL Urine Color Yellow (YELLOW) Urine Appearance Clear (CLEAR) Urine pH 7.0 (4.5-8.0) Ur Specific Sutter 1.020 (1.003-1.020) Urine Protein Negative (NEGATIVE) mg/dL Urine Glucose (UA) Negative (NEGATIVE) mg/dL Urine Ketones Negative (NEGATIVE) mg/dL Urine Occult Blood Negative (NEGATIVE) Urine Nitrite Negative (NEGATIVE) Urine Bilirubin Negative (NEGATIVE) Urine Urobilinogen 0.2 (0.2-1.0) EU/dL Ur Leukocyte Esterase Negative (NEGATIVE) Urine RBC Not seen (0-5) /HPF Urine WBC Not seen (0-5) /HPF Urine HCG, Qual 04/25/19 Range/Units 22:25 WBC (5.0-10.0) 10^3/uL RBC (4.00-5.50) 10^6/uL Hgb (12.0-16.0) g/dL Hct (37.0-47.0) % MCV (82.0-94.0) fL MCH (27.0-32.0) pg MCHC (33.0-38.0) g/dL RDW Coeff of Sherrie (11.0-15.0) % Plt Count (150-400) 10^3/uL Neut % (Auto) (35-85) % Lymph % (Auto) (10-55) % Nicholas % (Auto) (0-16) % Eos % (Auto) (0-5) % Baso % (Auto) (0-3) % Neut # (Auto) (1.80-7.00) 10^3/uL Lymph # (Auto) (1.00-4.80) 10^3/uL Nicholas # (Auto) (0.00-0.80) 10^3/uL Eos # (Auto) (0.00-0.45) 10^3/uL Baso # (Auto) 10^3/uL Sodium (136-145) mEq/L Potassium (3.5-5.0) mEq/L Chloride (98-106) mEq/L Carbon Dioxide (21-32) mmol/L BUN (7-18) mg/dL Creatinine (0.6-1.0) mg/dL Est Cr Clr Drug Dosing mL/min Estimated GFR (MDRD) (>=60) mL/min Glucose (75-99) mg/dL Calcium (8.4-10.1) mg/dL C-Reactive Protein (0.2-0.8) mg/dL Urine Color (YELLOW) Urine Appearance (CLEAR) Urine pH (4.5-8.0) Ur Specific Sutter (1.003-1.020) Urine Protein (NEGATIVE) mg/dL Urine Glucose (UA) (NEGATIVE) mg/dL Urine Ketones (NEGATIVE) mg/dL Urine Occult Blood (NEGATIVE) Urine Nitrite (NEGATIVE) Urine Bilirubin (NEGATIVE) Urine Urobilinogen (0.2-1.0) EU/dL Ur Leukocyte Esterase (NEGATIVE) Urine RBC (0-5) /HPF Urine WBC (0-5) /HPF Urine HCG, Qual Negative Meds: Medications Discontinued Medications Generic Name Dose Route Start Last Admin Trade Name [place] PRN Reason Stop Dose Admin Ketorolac Tromethamine 60 mg 07/14/18 22:19 07/14/18 22:27 Toradol IM 07/14/18 22:20 Not Given ONETIME ONE Orphenadrine Citrate 1 packet 07/14/18 22:38 Take Home: Orphenadrine 100 Mg, 4 Tab Pack PO 07/14/18 22:39 ONETIME ONE - Re-Assessments/Exams Free Text/Narrative Re-Assessment/Exam: 07/14/18 Labs are all normal. UA normal. Negative HCG. Offered Toradol injection but patient refused. Departure - Departure Time of Disposition: 22:39 Disposition: Home, Self-Care 01 Condition: Good Clinical Impression: Back pain - Discharge Information *PRESCRIPTION DRUG MONITORING PROGRAM REVIEWED*: No *COPY OF PRESCRIPTION DRUG MONITORING REPORT IN PATIENT SHY: No Referrals: PCP,None [Primary Care Provider] - Forms: ED Department Discharge Additional Instructions: 1. Rest 2. Tramadol 50 mg every 6 hours for pain 3. Ibuprofen 400-600 mg every 6 hours 4. Norflex 100 mg twice a day day 5. Continue with PT 6. Follow up if continue to have persisting pain
[2018-07-14] MEDS ORDERED: Take Home: Orphenadrine 100 MG Tab.ER, 4 Tab Pack PO ONE (22:38)
== END 2018-07-14 22:50 | disposition home or self-care (01) ==
LOC: CC.ED 21:31
DX: M54.5 Low back pain (principal)
CPT/HCPCS: 36415; 80048; 81001; 81025; 85025; 86140; 99283; A9270-GY

== ENCOUNTER 2018-08-06 15:07 | Emergency (ER) | payer MEDICAID ==
[2018-08-06] MEDS ORDERED: Azithromycin 250 MG Tab PO ONE (15:08)
[2018-08-06 15:13] VITALS: BP 115/69
[2018-08-06] MEDS ORDERED: Take Home: Azithromycin 250 MG, 2 Tab Pack PO ONE (15:32)
--- NOTE | 2018-08-06 15:54 | EDM.PDOC ---
ED HPI GENERAL MEDICAL PROBLEM - General Chief Complaint: General Stated Complaint: "bronchitis is not getting better" Time Seen by Provider: 08/06/18 15:11 Source of Information: Reports: Patient History Limitations: Reports: No Limitations - History of Present Illness INITIAL COMMENTS - FREE TEXT/NARRATIVE: Elmira is a 33 year old female who presents to the ED with c/o ongoing cough. Was seen in the clinic 4 days ago and started on prednisone for bronchitis, but she does not feel she is improving. Reports she continues to cough and is starting to feel sore in her ribs from coughing so much. Cough is nonproductive. She has cate afebrile. Does have sinus congestion and post nasal draniage. No shortness of breath. Denies any other complaints. Has been taking Mucinex and Sudafed without relief. 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: Musculoskeletal History: Reports: Back Pain, Chronic Other Musculoskeletal History: bulging discs Neurological History: Reports: Headaches, Chronic Psychiatric History: Reports: Anxiety, Panic Attack Endocrine/Metabolic History: Reports: Obesity/BMI 30+ Hematologic History: Reports: B12 Deficiency - Past Surgical History GI Surgical History: Reports: Cholecystectomy Female Surgical History: Reports: Section Endocrine Surgical History: Reports: None Neurological Surgical History: Reports: None Musculoskeletal Surgical History: Reports: None Social & Family History - Family History Family Medical History: Noncontributory - Tobacco Use Smoking Status *Q: Never Smoker - Caffeine Use Caffeine Use: Reports: Coffee ED ROS GENERAL - Review of Systems Review Of Systems: ROS reveals no pertinent complaints other than HPI. ED EXAM, GENERAL - Physical Exam Exam: See Below Exam Limited By: No Limitations General Appearance: Alert, WD/WN, No Apparent Distress Ears: Normal External Exam, Normal Canal, Hearing Grossly Normal, Normal TMs Nose: Nasal Swelling, Clear Rhinorrhea Throat/Mouth: Normal Inspection, Normal Lips, Normal Teeth, Normal Gums, Normal Oropharynx, Normal Voice, No Airway Compromise, Other (post nasal drainage) Head: Atraumatic, Normocephalic Neck: Normal Inspection, Supple, Non-Tender, Full Range of Motion Respiratory/Chest: No Respiratory Distress, Lungs Clear, Normal Breath Sounds, No Accessory Muscle Use, Chest Non-Tender, Other (Dry cough) Cardiovascular: Normal Peripheral Pulses, Regular Rate, Rhythm, No Edema, No Gallop, No JVD, No Murmur, No Rub Lymphatic: No Adenopathy Course - Vital Signs Last Recorded V/S: Last Vital Signs Temp 97.1 F 08/06/18 15:11 Pulse 90 08/06/18 15:11 Resp 20 08/06/18 15:11 BP 115/69 08/06/18 15:11 Pulse Ox 99 08/06/18 15:11 - Orders/Labs/Meds Meds: Medications Discontinued Medications Generic Name Dose Route Start Last Admin Trade Name [place] PRN Reason Stop Dose Admin Azithromycin 3 packet 08/06/18 15:32 08/06/18 15:39 Take Home: Azithromycin 250 Mg, 2 Tab Pack PO 08/06/18 15:33 3 packet ONETIME ONE Administration Departure - Departure Time of Disposition: 15:30 Disposition: Home, Self-Care 01 Condition: Good Clinical Impression: URI with cough and congestion - Discharge Information *PRESCRIPTION DRUG MONITORING PROGRAM REVIEWED*: Not Applicable *COPY OF PRESCRIPTION DRUG MONITORING REPORT IN PATIENT SHY: Not Applicable Instructions: Upper Respiratory Infection, Adult, [id number] Referrals: PCP,Unknown [Primary Care Provider] - Forms: ED Department Discharge Additional Instructions: 1) Continue promethazine-codeine as needed at night for cough 2) Start Claritin or Zyrtec daily 3) May also continue to use decongestants as needed 4) May start Azithromycin if feel symptoms are worsening. 2 tablets on day 1, then 1 tablet daily x 4 days. 5) Alternate Tylenol and ibuprofen as needed for discomfort 6) Rest and push fluids 7) Follow up in clinic if symptoms worsen or do not improve over the next week
== END 2018-08-06 15:40 | disposition home or self-care (01) ==
LOC: CC.ED 15:07
DX: J06.9 Acute upper respiratory infection, unspecified (principal); Z79.899 Other long term (current) drug therapy
CPT/HCPCS: 99282; A9270-GY

== ENCOUNTER 2019-09-06 11:26 | Emergency (ER) | payer MEDICAID ==
[2019-09-06 11:34] VITALS: BP 120/67; PULSE 74
--- NOTE | 2019-09-06 12:02 | EDM.PDOC ---
ED HPI GENERAL MEDICAL PROBLEM - General Chief Complaint: Lower Extremity Injury/Pain Stated Complaint: ANKLE PAIN Time Seen by Provider: 09/06/19 11:50 Source of Information: Reports: Patient History Limitations: Reports: No Limitations - History of Present Illness INITIAL COMMENTS - FREE TEXT/NARRATIVE: Pt states that she twisted her ankle and fell. She has pain to the lateral left ankle. SHe did initially bear weight but then it became more painful and felt it needed to be xrayed. She has noted an increase in swelling to the area. NO bruising noted Onset: Today Left Ankle Pain Score (Numeric/FACES): 6 - Related Data Allergies Allergy/AdvReac Type Severity Reaction Status Date / Time No Known Allergies Allergy Verified 09/06/19 11:35 Home Meds: Home Meds Acetaminophen [Tylenol Extra Strength] 500 mg PO Q4H PRN 10/02/18 [History] Naproxen 500 mg PO Q12H PRN 10/02/18 [History] Escitalopram Oxalate [Lexapro] 20 mg PO DAILY 09/06/19 [History] methIMAzole [Methimazole] 5 mg PO DAILY 09/06/19 [History] Past Medical History - Past Health History Medical/Surgical History: Denies Medical/Surgical History HEENT History: Reports: None 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 History: Reports: GERD 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: Musculoskeletal History: Reports: Back Pain, Chronic Other Musculoskeletal History: bulging discs Neurological History: Reports: Headaches, Chronic Psychiatric History: Reports: Anxiety, Depression, Panic Attack Endocrine/Metabolic History: Reports: Obesity/BMI 30+ Hematologic History: Reports: B12 Deficiency - Past Surgical History GI Surgical History: Reports: Cholecystectomy Female Surgical History: Reports: Section Endocrine Surgical History: Reports: None Neurological Surgical History: Reports: None Musculoskeletal Surgical History: Reports: None Social & Family History - Family History Family Medical History: Noncontributory - Tobacco Use Smoking Status *Q: Never Smoker - Caffeine Use Caffeine Use: Reports: Coffee - Recreational Drug Use Recreational Drug Use: No Review of Systems - Review of Systems Review Of Systems: See Below Musculoskeletal: Reports: Foot Pain Skin: Reports: No Symptoms ED EXAM, GENERAL - Physical Exam Exam: See Below General Appearance: WD/WN, No Apparent Distress Extremities: Other (lateral left ankle is swollen. TEnder to touch and with movement. No bruising noted and no abrasion. Good sensation noted distally. Good pulse noted.) Course - Vital Signs Last Recorded V/S: Last Vital Signs Temp 98.2 F 09/06/19 11:32 Pulse 74 09/06/19 11:32 Resp 16 09/06/19 11:32 BP 120/67 09/06/19 11:32 Pulse Ox 99 09/06/19 11:32 - Re-Assessments/Exams Free Text/Narrative Re-Assessment/Exam: 09/06/19 1155 Discussed normal xray with pt. Will give aircast to wear for support and follow up as needed. Departure - Departure Time of Disposition: 12:00 Disposition: Home, Self-Care 01 Condition: Good Clinical Impression: Ankle sprain Qualifiers: Encounter type: initial encounter Involved ligament of ankle: unspecified ligament Laterality: left Qualified Code(s): S93.402A - Sprain of unspecified ligament of left ankle, initial encounter - Discharge Information *PRESCRIPTION DRUG MONITORING PROGRAM REVIEWED*: Not Applicable *COPY OF PRESCRIPTION DRUG MONITORING REPORT IN PATIENT SHY: Not Applicable Instructions: Ankle Sprain Forms: ED Department Discharge Additional Instructions: Rest as needed for pain control. Weight bearing as much as tolerated tylenol or advil as needed for discomfort ICE and elevation for swelling. Sepsis Event Note (ED) - Evaluation Sepsis Screening Result: No Definite Risk - Problem List & Annotations (1) Ankle sprain SNOMED Code(s): 96084662 Code(s): S93.409A - SPRAIN OF UNSP LIGAMENT OF UNSPECIFIED ANKLE, INIT ENCNTR Status: Acute Priority: High Qualifiers: Encounter type: initial encounter Involved ligament of ankle: unspecified ligament Laterality: left Qualified Code(s): S93.402A - Sprain of unspecified ligament of left ankle, initial encounter - Problem List Review Problem List Initiated/Reviewed/Updated: Yes
== END 2019-09-06 12:09 | disposition home or self-care (01) ==
LOC: CC.ED 11:26
DX: S93.402A Sprain of unspecified ligament of left ankle, initial encounter (principal); E66.9 Obesity, unspecified; Z68.31 Body mass index [BMI] 31.0-31.9, adult; Z79.899 Other long term (current) drug therapy; X50.1XXA Overexertion from prolonged static or awkward postures, initial encounter
CPT/HCPCS: 73610-LT; 99283-25

== ENCOUNTER 2020-03-10 16:29 | Emergency (ER) | payer MEDICAID ==
[2020-03-10 16:49] VITALS: BP 126/79; PULSE 89
--- NOTE | 2020-03-10 17:00 | EDM.PDOC ---
ED HPI GENERAL MEDICAL PROBLEM - General Chief Complaint: General Stated Complaint: URI Sx Time Seen by Provider: 03/10/20 16:40 Source of Information: Reports: Patient History Limitations: Reports: No Limitations - History of Present Illness INITIAL COMMENTS - FREE TEXT/NARRATIVE: Elmira is a 34 year old female who presents to the ER with complaints of headaches, body aches and sinus congestion since Wednesday. Has noted a tightness in her chest with deep breaths and a mild cough. Denies shortness of breath. No fevers. No nausea/vomiting. Occasional loose stools. Has been taking Naproxen for the discomfort. Unaware of any exposure to Covid. Denies loss of taste or smell. Onset: Gradual Duration: Day(s):, Getting Worse Location: Reports: Head, Chest, Generalized Quality: Reports: Ache Severity: Moderate Improves with: Reports: Medication Associated Symptoms: Reports: Cough, Headaches, Malaise, Nausea/Vomiting. 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: Musculoskeletal History: Reports: Back Pain, Chronic Other Musculoskeletal History: bulging discs Neurological History: Reports: Headaches, Chronic Psychiatric History: Reports: Anxiety, Depression, Panic Attack Endocrine/Metabolic History: Reports: Obesity/BMI 30+ Hematologic History: Reports: B12 Deficiency - Past Surgical History GI Surgical History: Reports: Cholecystectomy Female Surgical History: Reports: Section Endocrine Surgical History: Reports: None Neurological Surgical History: Reports: None Musculoskeletal Surgical History: Reports: None Social & Family History - Family History Family Medical History: No Pertinent Family History - Tobacco Use Tobacco Use Status *Q: Never Tobacco User Second Hand Smoke Exposure: No - Caffeine Use Caffeine Use: Reports: Coffee - Recreational Drug Use Recreational Drug Use: No ED ROS GENERAL - Review of Systems Review Of Systems: See Below Constitutional: Reports: Malaise, Weakness, Fatigue. Denies: Fever, Chills HEENT: Reports: Rhinitis, Sinus Problem. Denies: Ear Pain, Throat Pain Respiratory: Reports: Pleuritic Chest Pain, Cough. Denies: Shortness of Breath Cardiovascular: Denies: Chest Pain, Edema, Lightheadedness Endocrine: Reports: Fatigue GI/Abdominal: Reports: Diarrhea, Nausea. Denies: Abdominal Pain, Constipation, Vomiting : Reports: No Symptoms Musculoskeletal: Reports: No Symptoms Skin: Reports: No Symptoms Neurological: Reports: Headache, Weakness ED EXAM, GENERAL - Physical Exam Exam: See Below Exam Limited By: No Limitations General Appearance: Alert, WD/WN, No Apparent Distress Ears: Normal External Exam, Normal TMs Nose: Normal Inspection, Normal Mucosa, No Blood Throat/Mouth: Normal Inspection, Normal Oropharynx Head: Normocephalic Neck: Normal Inspection, Supple, Non-Tender Respiratory/Chest: No Respiratory Distress, Lungs Clear, Normal Breath Sounds Cardiovascular: Regular Rate, Rhythm GI/Abdominal: Normal Bowel Sounds, Soft, Non-Tender Extremities: Normal Inspection, No Pedal Edema Neurological: Alert, Oriented Skin Exam: Warm, Dry Course - Vital Signs Last Recorded V/S: Last Vital Signs Temp 98.3 F 03/10/20 16:42 Pulse 89 03/10/20 16:42 Resp 20 03/10/20 16:42 BP 126/79 03/10/20 16:42 Pulse Ox 97 03/10/20 16:42 - Orders/Labs/Meds Labs: Laboratory Tests 03/10/20 Range/Units 16:15 SARS CoV-2 RNA Rapid CHRIS Positive H (NEGATIVE) - Re-Assessments/Exams Free Text/Narrative Re-Assessment/Exam: 03/10/20 16:40- covid test positive Departure - Departure Time of Disposition: 16:58 Disposition: Home, Self-Care 01 Condition: Good Clinical Impression: COVID-19 - Discharge Information *PRESCRIPTION DRUG MONITORING PROGRAM REVIEWED*: No *COPY OF PRESCRIPTION DRUG MONITORING REPORT IN PATIENT SHY: No Instructions: COVID-19, COVID-19 Frequently Asked Questions Forms: ED Department Discharge Additional Instructions: 1. Isolate/quarantine 2. Push fluids 3. Lie on stomach frequently through day 4. Tylenol or ibuprofen for fever or discomfort, may use naproxen 5. [facility] department will be calling you with further information 6. Return if develop worsening symptoms, shortness of breath or concerns. Sepsis Event Note (ED) - Evaluation Sepsis Screening Result: No Definite Risk - Focused Exam Vital Signs: Vital Signs Temp Pulse Resp BP Pulse Ox 03/10/20 16:42 98.3 F 89 20 126/79 97
== END 2020-03-10 17:05 | disposition home or self-care (01) ==
LOC: CC.ED 16:29
DX: U07.1 COVID-19 (principal); F41.9 Anxiety disorder, unspecified; F32.9 Major depressive disorder, single episode, unspecified; E66.9 Obesity, unspecified; Z68.32 Body mass index [BMI] 32.0-32.9, adult; Z79.899 Other long term (current) drug therapy
CPT/HCPCS: 99284; U0002

== ENCOUNTER 2025-02-14 18:55 | Emergency (ER) | payer OTHER ==
[2025-02-14 20:35] VITALS: BP 114/70; PULSE 82
== END 2025-02-14 19:50 | disposition home or self-care (01) ==
LOC: CC.ED 18:55
DX: B34.9 Viral infection, unspecified (principal); E66.9 Obesity, unspecified; Z79.899 Other long term (current) drug therapy; Z90.49 Acquired absence of other specified parts of digestive tract; Z68.42 Body mass index [BMI] 45.0-49.9, adult
CPT/HCPCS: 87651; 99284